=== PATIENT | male | born 1990 | race Two or more races ===

== ENCOUNTER 2018-08-06 01:03 | Emergency (ER) | payer MEDICAID ==
[~2018-08-06] VITALS: Ht 167.6 cm; Wt 83.9 kg
[2018-08-06] MEDS ORDERED: TETRACAINE HCL 0.5% OPTH(EYE) SOLN 4ML ONE (02:42)
[2018-08-06] MEDS ORDERED: TETRACAINE HCL 0.5% OPTH(EYE) SOLN 4ML EACHEYE ONE (02:45)
[2018-08-06] MEDS ORDERED: HYDROcodone-ACET 10/325MG TAB PO ONE (03:00)
[2018-08-06] MEDS ORDERED: NEOMYCIN-POLYMY-DEXAMETH 0.1% OPTH(EYE) SUSP 5ML EACHEYE ONE (03:00)
[2018-08-06] MEDS ORDERED: KETOROLAC TROMETH 60MG/2ML VIAL IM ONE (03:00)
[2018-08-06 04:22] VITALS: BP 132/81
== END 2018-08-06 06:19 | disposition home or self-care (01) ==
LOC: ER 01:05
DX: H57.13 Ocular pain, bilateral (principal); W34.09XA Accidental discharge from other specified firearms, initial encounter; Y93.89 Activity, other specified; Y92.89 Other specified places as the place of occurrence of the external cause; Y99.8 Other external cause status
CPT/HCPCS: 96372; 99283; J1885

== ENCOUNTER 2019-09-18 20:28 | Emergency (ER) | payer MEDICAID ==
[~2019-09-18] VITALS: Ht 170.2 cm; Wt 86.2 kg
[2019-09-18 20:31] VITALS: BP 113/73
[2019-09-18] MEDS ORDERED: FLUORESCEIN SOD 1 MG TEST STRIP LEFTEYE ONE (22:30)
== END 2019-09-18 23:17 | disposition home or self-care (01) ==
LOC: ER 20:31
DX: T15.92XA Foreign body on external eye, part unspecified, left eye, initial encounter (principal); X58.XXXA Exposure to other specified factors, initial encounter; Y93.89 Activity, other specified; Y92.89 Other specified places as the place of occurrence of the external cause; Y99.8 Other external cause status
CPT/HCPCS: 65205